=== PATIENT | female | born 1955 | race African-American/Black ===

== ENCOUNTER 2022-03-12 19:24 | Emergency (ER) | payer MEDICAID, MEDICARE ==
[~2022-03-12 19:24] MED LIST: Iopamidol 370 76% 100 ML VIAL ONE
[2022-03-12] MEDS ORDERED: Sodium Chloride 0.9% 1,000 ML ONE (21:36)
[2022-03-12] MEDS ORDERED: Ondansetron PF 4 MG/2 ML Vial ONE (21:36)
[2022-03-12] MEDS ORDERED: Acetaminophen 500 MG TAB ONE (21:36)
[2022-03-12 22:24] LABS: #Basophils 0.1 thou/uL (0.0-0.2); #Eosinphils 0.1 thou/uL (0.0-0.7); #Lymphocytes 3.6 thou/uL (1.20-3.40); #Monocytes 0.4 thou/uL (0.11-0.59); #Neutrophils 5.8 thou/uL (1.40-6.50); %Basophils 1.5 % (0.0-1.0); %Eosinophils 1.4 % (0.0-10.0); %Lymphocytes 35.7 % (21.0-51.0); %Monocytes 4.3 % (0.0-10.0); %Neutrophils 57.1 % (42.0-75.0); Hemoglobin 11.7 g/dL (12.0-16.0); Mean Corpuscular HGB CONC 30.8 g/dL (32.0-36.0); Mean Corpuscular Hemoglobin 29.2 pg (27.0-31.0); Mean Corpuscular Volume 94.9 fL (78.0-98.0); Mean Platelet Volume 7.9 fL (7.4-10.4); Platelet Count 285 thou/uL (130-400); RBC Distribution Width 12.9 % (11.5-14.5); Red Blood Cell (RBC) Count 3.99 mill/uL (4.20-5.40); White Blood Cell (WBC) Count 10.1 thou/uL (4.8-10.8)
[2022-03-12 22:35] LABS: SARS-CoV-2 NAA Rapid Test Not Detected (NotDetected)
[2022-03-12 22:38] LABS: ALT (SGPT) 41 U/L (8-55); AST (SGOT) 28 U/L (5-34); Albumin 3.9 g/dL (3.4-4.8); Alkaline Phosphatase 67 U/L (40-110); Anion Gap 14 mmol/L (10-20); BUN (Urea Nitrogen) 13 mg/dL (9.8-20.1); Bilirubin, Total 0.4 mg/dL (0.2-1.2); CK (CPK) 118 U/L (29-168); Calc. Creatinine Clearance 0 mL/min (70-130); Calcium 9.2 mg/dL (7.8-10.44); Carbon Dioxide 23 mmol/L (23-31); Chloride 104 mmol/L (98-107); Estimated GFR 93; Globulin 3.1 g/dL (2.4-3.5); Glucose 102 mg/dL (80-115); Potassium 4.2 mmol/L (3.5-5.1); Sodium 137 mmol/L (136-145)
[2022-03-13] MEDS ORDERED: Azithromycin 500 MG VIAL ONE (00:53)
[2022-03-13] MEDS ORDERED: Sodium Chloride 0.9% 100 ML ONE (00:53)
[2022-03-13] MEDS ORDERED: cefTRIAXone\\ROCEPHIN 1 GM VIAL ONE (00:53)
[2022-03-13] MEDS ORDERED: Sodium Chloride 0.9% 250 ML 250 ML ONE (00:53)
[2022-03-13] MEDS ORDERED: Furosemide 40 MG/4 ML VIAL ONE (00:54)
== END 2022-03-13 02:13 | disposition short-term general hospital (02) ==
LOC: NAV ERS 19:24
DX: J18.9 Pneumonia, unspecified organism (principal); I11.0 Hypertensive heart disease with heart failure; I50.9 Heart failure, unspecified; Z20.822 Contact with and (suspected) exposure to COVID-19; E78.5 Hyperlipidemia, unspecified; Z79.899 Other long term (current) drug therapy
CPT/HCPCS: 71045; 71275; 80053; 82550; 83605; 83880; 84484; 85025; 85379; 93005; 96361; 96365; 96367; 96375; J0456; J0696; J1940; J2405; J3490; J7050; Q9967